=== PATIENT | male | born 1960 | race Caucasian/White ===

== ENCOUNTER → 2018-02-22 | Emergency (ER) | payer OTHER ==
[~2018-02-22] VITALS: Ht 185.4 cm; Wt 104.3 kg
[~2018-02-22] MED LIST: IOHEXOL-350 100 ML VIAL IV ONE
--- NOTE | 2018-02-22 10:25 | NUR ---
aaoxe, c/o LEFT UPPER BACK PAIN RADIATING TO L SHOULDER, TOOK GABAPENTIN AND ROBAXIN. No recent fall or injury reported. RR is even and unlabored with NAD noted. Skin is warm and dry. Awaiting md for eval.
[2018-02-22 10:51] LABS: BASOPHILS % (AUTO) 0.6 % (0.0-2.0); EOSINOPHILS % (AUTO) 0.6 % (0.0-6.0); HEMATOCRIT 45 % (39-51); HEMOGLOBIN 15.6 g/dL (13.5-17.5); LYMPHOCYTES # (AUTO) 1.2 /CMM (0.8-4.8); MEAN CORPUSCULAR HEMOGLOBIN 33 PG (26.0-33.0); MEAN CORPUSCULAR HGB CONC 34 g/dl (31.0-36.0); MEAN CORPUSCULAR VOLUME 95 fL (80-96); MONOCYTES # (AUTO) 0.3 /CMM (0.1-1.30); MONOCYTES % (AUTO) 3.1 % (2.0-12.0); NEUTROPHILS # (AUTO) 6.8 /CMM (1.8-8.9); NEUTROPHILS % (AUTO) 81.7 % (43.0-81.0); PLATELET COUNT (AUTO) 196 /CMM (150-450); RDW COEFFICIENT OF VARIATION 11.9 (11.5-15.0); RED BLOOD CELL COUNT(AUTO) 4.76 MIL/uL (4.5-6.0); WHITE BLOOD COUNT (AUTO) 8.3 K/uL (4.3-11.0)
[2018-02-22 11:02] LABS: CALCIUM, SERUM 8.7 mg/dL (8.5-10.1); CARBON DIOXIDE 30 mmol/L (21-32); CHLORIDE 103 mmol/L (98-107); GLUCOSE 105 mg/dL (74-106); POTASSIUM 4.2 mmol/L (3.5-5.1); SODIUM SERUM 137 mmol/L (136-145); UREA NITROGEN, BLOOD 11 mg/dL (7-18)
[2018-02-22 11:07] LABS: INR 0.95 (0.85-1.15)
[2018-02-22 11:10] LABS: TROPONIN I < 0.017 ng/mL (0.00-0.056)
--- NOTE | 2018-02-22 12:10 | NUR ---
PT SLEEPING FAMILY AT BEDSIDE
--- NOTE | 2018-02-22 14:20 | NUR ---
PT VERY UPSET WANTED MORE MEDS WAS PRESENT WHEN DR RAMIREZ SPOKE WITH PT . PT LEFT UPSET AND YELLING AT STAFF. TORN UP RX AND LEFT IV removed. Catheter intact and site benign. Pressure and 4x4 applied to site. No bleeding noted.Patient discharged to home in stable condition. Written and verbal after care instructions given. Patient verbalizes understanding of instruction.
[2018-02-22 15:36] VITALS: BP 144/82
== END | disposition home or self-care (01) ==
LOC: ER 10:06
DX: T42.6X1A Poisoning by other antiepileptic and sedative-hypnotic drugs, accidental (unintentional), initial encounter (principal); M54.6 Pain in thoracic spine; I10 Essential (primary) hypertension; M54.30 Sciatica, unspecified side; R94.31 Abnormal electrocardiogram [ECG] [EKG]; Y92.89 Other specified places as the place of occurrence of the external cause
CPT/HCPCS: 36415; 71045-TC; 80048-TC; 84484-TC; 85025-TC; 85730-TC; A4606; Q9967; Z7610